=== PATIENT | female | born 1975 | race Hispanic/Latino ===

== ENCOUNTER 2019-12-14 18:21 | Emergency (ER) | payer SELFPAY ==
[2019-12-14] MEDS ORDERED: MORPHINE 2 MG/ML SYR ONE (19:42)
[2019-12-14] MEDS ORDERED: NA CHLORIDE 0.9% 1,000 ML ONE (19:43)
[2019-12-14] MEDS ORDERED: ONDANSETRON 4 MG/2 ML VIAL ONE (19:43)
[2019-12-14 19:52] LABS: Absolute Lymphocytes (CBC) 4.3 K/uL (0.7-4.9); Basophils % 0.6 % (0-1.3); Lymphocytes % 39.7 % (15.3-44.8); MPV 7.9 fL (7.6-11.3); RBC Red Blood Cell Count 4.56 M/uL (3.86-4.86)
[2019-12-14 20:09] LABS: ALT/SGPT 78 U/L (12-78); AST/SGOT 32 U/L (15-37); Albumin 3.9 g/dL (3.4-5.0); Alkaline Phosphatase 78 U/L (45-117); BUN Blood Urea Nitrogen 14 mg/dL (7-18); Bicarbonate 28 mmol/L (21-32); Bilirubin Direct < 0.1 mg/dL (0-0.2); Bilirubin Total 0.3 mg/dL (0.2-1.0); Glucose Level 89 mg/dL (74-106); Lipase 128 U/L (73-393); Potassium 3.6 mmol/L (3.5-5.1); Protein, Total 8.5 g/dL (6.4-8.2); Sodium Level 139 mmol/L (136-145)
--- NOTE | 2019-12-14 21:26 | RAD REPORT ---
EXAM DESCRIPTION: CT - Abdomen Pelvis W Contrast - 12/14/2019 8:56 pm CLINICAL HISTORY: ABD PAIN COMPARISON: No comparisons TECHNIQUE: Biphasic, helical CT imaging of the abdomen and pelvis was performed following 100 ml non -ionic IV contrast. No oral contrast given. All CT scans are performed using dose optimization technique as appropriate and may include automated exposure control or mA/KV adjustment according to patient size. FINDINGS: No suspicious findings in the lung bases. Liver shows diffuse fatty infiltration with no focal liver lesion. No portal vein abnormality. Spleen and pancreas show no suspicious findings. Cholecystectomy clips are present. No biliary tree dilatat ion. Symmetric renal function is seen with no hydronephrosis or suspicious renal mass. No pyelonephritis o r acute parenchymal process. Urinary bladder is contracted limiting assessment. No adrenal abnormalit ies. Uterus shows no suspicious findings. Tubal occlusive device in place. Left ovary is unremarkable . Right ovary contains a 3 centimeter benign-appearing cyst. No stomach or small bowel acute finding. Cecum is low-lying in the pelvis. The appendix is in the low anterior midline pelvis. The appendix measures large at 11 mm. No periappendiceal inflammatory stran ding or appendicolith. No free air or pneumatosis. Physiologic quantity of free fluid in the cul de sac. No hernia, mass or bulky lymphadenopathy. No suspicious bony findings. IMPRESSION: Pronounced fatty infiltration of the liver is present. No acute findings in the upper ab domen. The appendix measures large at 11 mm but no appendicolith present and no surrounding inflammatory str anding. The appendix is low in the anterior midline pelvis. Acute appendicitis is doubtful given the appearance and history of upper abdominal pain
[2019-12-14 21:32] LABS: Urine Blood NEGATIVE (NEG); Urine Glucose NEGATIVE (NEG); Urine Protein NEGATIVE (NEG); Urine Specific Gravity >1.030 (1.005-1.030)
[2019-12-14] MEDS ORDERED: PROMETHAZINE INJ 25 MG/ML AMP ONE (22:13)
[2019-12-14] MEDS ORDERED: LIDOCAINE VISCOUS 2% SOLN 15 ML UDC ONE (22:13)
[2019-12-14] MEDS ORDERED: FAMOTIDINE 20 MG/2 ML VIAL IV ONE (22:13)
[2019-12-14] MEDS ORDERED: PANTOPRAZOLE 40 MG INJ ONE (22:13)
[2019-12-14] MEDS ORDERED: MAGNE/ALUM HYDROXD 30 ML UCUP ONE (22:13)
--- NOTE | 2019-12-14 22:16 | EDPHYS ---
Physician Documentation [facility] Name: Mare Ramirez Age: 44 yrs Sex: Female : 1975 Arrival Date: 12/14/2019 Time: 18:23 Bed 8 Private MD: ED Physician Gonzales Allen HPI: 12/13 19:35 This 44 yrs old Female presents to ER via Ambulatory with complaints of cp Abdominal Pain. 19:35 The patient presents with abdominal pain in the epigastric area. cp 19:35 Onset: The symptoms/episode began/occurred 2 day(s) ago. cp 19:35 The symptoms radiate to Associated signs and symptoms: Pertinent positives: nausea and cp vomiting, Pertinent negatives: chest pain, constipation, diarrhea, fever. The symptoms are described as constant. Severity of pain: in the emergency department the pain is unchanged despite home interventions. 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 - Social history:: Smoking status: Patient denies any tobacco usage or history of. ROS: 19:50 Constitutional: Negative for body aches, chills, fever, poor PO intake. cp 19:50 Eyes: Negative for injury, pain, redness, and discharge. cp 19:50 Cardiovascular: Negative for chest pain, palpitations. cp 19:50 ENT: Negative for ear pain, sore throat. cp 19:50 Respiratory: Negative for cough, shortness of breath, wheezing. 19:50 Abdomen/GI: Positive for abdominal pain, nausea, Negative for diarrhea, constipation, active vomiting. 19:50 Back: Positive for radiated pain. 19:50 Skin: Negative for rash. 19:50 All other systems are negative. Exam: 19:55 Constitutional: The patient appears in no acute distress, alert, awake, cp non-diaphoretic, non-toxic, well developed, well nourished. 19:55 Head/Face: Normocephalic, atraumatic. cp 19:55 Eyes: Periorbital structures: appear normal, Conjunctiva: normal, no exudate, no injection, Sclera: no appreciated abnormality, Lids and lashes: appear normal, bilaterally. 19:55 ENT: External ear(s): are unremarkable, Nose: is normal, Mouth: Lips: moist, Oral mucosa: moist, Posterior pharynx: Airway: no evidence of obstruction, patent. 19:55 Chest/axilla: Inspection: normal, Palpation: is normal, no crepitus, no tenderness. 19:55 Cardiovascular: Rate: tachycardic, Rhythm: regular. 19:55 Respiratory: the patient does not display signs of respiratory distress, Respirations: normal, no use of accessory muscles, no retractions, labored breathing, is not present, Breath sounds: are clear throughout, no decreased breath sounds. 19:55 Abdomen/GI: Inspection: abdomen appears normal, Bowel sounds: active, all quadrants, Palpation: soft, in all quadrants, severe abdominal tenderness, in the epigastric area, rebound tenderness, is not appreciated, voluntary guarding, is elicited in the epigastric area. Vital Signs: 18:29 BP 114 / 96; Pulse 118; Resp 18; Temp 99.6; Pulse Ox 95% ; Weight 73.94 kg; Height 4 ll1 ft. 11 in. (149.86 cm); Pain 10/10; 20:00 BP 120 / 74; Pulse 78; Resp 17; Pulse Ox 100% on R/A; rv 22:09 BP 115 / 84; Pulse 93; Resp 17; Pulse Ox 98% on R/A; rv 18:29 Body Mass Index 32.92 (73.94 kg, 149.86 cm) ll1 MDM: 19:12 Patient medically screened. cp 19:30 Differential diagnosis: gastroesophageal reflux disease, non-specific abd pain, cp pancreatitis, choledocholithiasis. 22:15 Data reviewed: vital signs, nurses notes, lab test result(s), radiologic studies, CT cp scan, and as a result, I will discharge patient. 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 Response to treatment: the patient's symptoms have markedly improved after treatment. 12/13 19:24 Order name: Basic Metabolic Panel; Complete Time: 20:14 cp 12/13 19:24 Order name: CBC with Diff; Complete Time: 20:14 cp 12/13 19:24 Order name: Hepatic Function; Complete Time: 20:14 cp 12/13 20:14 Interpretation: Normal except: TP 8.5; GLOB 4.6; A/G 0.8. cp 12/13 19:24 Order name: Lipase; Complete Time: 20:14 cp 12/13 21:28 Order name: Urine Dipstick--Ancillary (enter results); Complete Time: 21:36 ar5 12/13 21:28 Order name: Urine --Ancillary (enter results); Complete Time: 21:36 ar5 12/13 19:24 Order name: CT Abd/Pelvis - IV Contrast Only; Complete Time: 21:36 cp 12/13 21:37 Interpretation: Report reviewed. cp 12/13 19:24 Order name: IV Saline Lock; Complete Time: 19:44 cp 12/13 19:24 Order name: Labs collected and sent; Complete Time: 19:44 cp 12/13 19:24 Order name: Urine Dipstick-Ancillary (obtain specimen); Complete Time: 21:27 cp 12/13 19:24 Order name: Urine Test (obtain specimen); Complete Time: 21:27 cp 12/13 21:38 Order name: PO challenge; Complete Time: 22:09 cp Administered Medications: 19:30 Drug: Zofran (Ondansetron) 4 mg Route: IVP; Site: right antecubital; rv 22:08 Follow up: Response: No adverse reaction rv 19:30 Drug: morphine 2 mg {Note: rass 0.} Route: IVP; Site: right antecubital; rv 22:08 Follow up: Response: No adverse reaction; RASS: Alert and Calm (0) rv 19:30 Drug: NS 0.9% 1000 ml Route: IV; Rate: 1 bolus; Site: right antecubital; rv 22:08 Follow up: IV Status: Completed infusion; IV Intake: 1000ml rv 22:07 Drug: GI Cocktail without - (Maalox Suspension 30 ml, Lidocaine Liquid 2 % 15 rv ml) Route: PO; 22:30 Follow up: Response: No adverse reaction; Marked relief of symptoms rv 22:07 Drug: ProTONIX 40 mg Route: IVP; Site: right antecubital; rv 22:29 Follow up: Response: No adverse reaction; Marked relief of symptoms rv 22:07 Drug: Pepcid 20 mg Route: IVP; Site: right antecubital; rv 22:29 Follow up: Response: No adverse reaction; Marked relief of symptoms rv 22:07 Drug: Phenergan 12.5 mg Route: IVP; Site: right antecubital; rv 22:29 Follow up: Response: No adverse reaction; Marked relief of symptoms rv Disposition: 12/14 00:40 Co-signature as Attending Physician, Gonzales Allen MD. pkl Disposition: 12/14/19 22:15 Discharged to Home. Impression: Epigastric pain. - Condition is Stable. - Discharge Instructions: Abdominal Pain, Adult, Gastroesophageal Reflux Disease, Adult. - Prescriptions for Protonix 40 mg Oral Tablet - take 1 tablet by ORAL route once daily; 30 tablet. promethazine 25 mg Oral Tablet - take 1 tablet by ORAL route every 6 hours As needed; 20 tablet. - Medication Reconciliation Form, Thank You Letter, Antibiotic Education, Prescription Opioid Use form. - Follow up: Demetrio Bledsoe MD; When: 1 - 2 days; Reason: Recheck today's complaints. - Problem is new. - Symptoms have improved. Signatures: Dispatcher [employer] EDMS Gonzales Allen MD MD pkl Jh Acevedo PA PA cp Tiago Negron RN RN rv Darin Lopez RN RN ll1 Corrections: (The following items were deleted from the chart) 12/13 22:28 22:15 12/14/2019 22:15 Discharged to Home. Impression: Epigastric pain. Condition is rv Stable. Forms are Medication Reconciliation Form, Thank You Letter, Antibiotic Education, Prescription Opioid Use. Follow up: Demetrio Bledsoe; When: 1 - 2 days; Reason: Recheck today's complaints. Problem is new. Symptoms have improved. cp
--- NOTE | 2019-12-14 22:16 | ER ---
Nurse's Notes [facility] Name: Mare Ramirez Age: 44 yrs Sex: Female : 1975 Arrival Date: 12/14/2019 Time: 18:23 Bed 8 Private MD: Diagnosis: Epigastric pain Presentation: 12/13 18:29 Chief complaint: Patient states: Upper abd pain with N/V/D since Friday evening. No ll1 known fever. Coronavirus screen: Client denies travel out of the [place] in the last 14 days. diarrhea, nausea, vomiting. Client presents with at least one sign or symptom that may indicate coronavirus-19. Standard/surgical mask placed on the client. Ebola Screen: Patient denies travel to an Ebola-affected area in the 21 days before illness onset. Initial Sepsis Screen: Does the patient meet any 2 criteria? HR > 90 bpm. No. Patient's initial sepsis screen is negative. Does the patient have a suspected source of infection? Yes: Acute abdominal pain. Risk Assessment: Do you want to hurt yourself or someone else? Patient reports no desire to harm self or others. Onset of symptoms was December 12, 2019. 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 - Social history:: Smoking status: Patient denies any tobacco usage or history of. Screenin:56 Abuse screen: Denies threats or abuse. Denies injuries from another. Nutritional rv screening: No deficits noted. Tuberculosis screening: No symptoms or risk factors identified. Fall Risk None identified. Assessment: 20:00 General: Appears uncomfortable, Behavior is calm, cooperative. rv 20:00 Pain: Complains of pain in abdomen Pain currently is 10 out of 10 on a pain scale. rv Neuro: Level of Consciousness is awake, alert, obeys commands, Oriented to person, place, time, situation. Cardiovascular: Patient's skin is warm and dry. Respiratory: Airway is patent Respiratory effort is even, unlabored. GI: Bowel sounds present X 4 quads. Abd is soft and non tender X 4 quads. Derm: Skin is intact. 22:08 Reassessment: PATIENT COMPLAINING OF ABDOMINAL PAIN AND NAUSEA, VITAL SIGNS CHECKED. rv AWAITING CT SCAN REPORT. REFERRED TO [facility]. NEW ORDERS RECEIVED. GIVEN MEDICATIONS ORDERED. 22:27 Reassessment:. Neuro: Level of Consciousness is awake, alert, obeys commands, Oriented rv to person, place, time, situation. GI: Abdomen is round non-distended, Patient currently denies abdominal pain, nausea. Vital Signs: 18:29 BP 114 / 96; Pulse 118; Resp 18; Temp 99.6; Pulse Ox 95% ; Weight 73.94 kg; Height 4 ll1 ft. 11 in. (149.86 cm); Pain 10/10; 20:00 BP 120 / 74; Pulse 78; Resp 17; Pulse Ox 100% on R/A; rv 22:09 BP 115 / 84; Pulse 93; Resp 17; Pulse Ox 98% on R/A; rv 18:29 Body Mass Index 32.92 (73.94 kg, 149.86 cm) ll1 ED Course: 18:23 Patient arrived in ED. ag5 18:31 Triage completed. ll1 18:31 Arm band placed on. ll1 19:11 Irma Acevedo PA is PHCP. cp 19:11 Gonzales Allen MD is Attending Physician. cp 19:28 Tiago Negron, AUDRA is Primary Nurse. rv 19:44 Initial lab(s) drawn, by nh, sent to lab. Inserted saline lock: 20 gauge in right rv antecubital area, using aseptic technique. Blood collected. 20:00 Patient has correct armband on for positive identification. Bed in low position. Call rv light in reach. Side rails up X 1. 20:00 Pulse ox on. NIBP on. rv 20:38 Radiology exam delayed due to test not completed at this time. vm2 20:56 CT Abd/Pelvis - IV Contrast Only In Process Unspecified. EDMS 22:14 Demetrio Bledsoe MD is Referral Physician. cp 22:27 No provider procedures requiring assistance completed. IV discontinued, intact, rv bleeding controlled, No redness/swelling at site. Pressure dressing applied. Administered Medications: 19:30 Drug: Zofran (Ondansetron) 4 mg Route: IVP; Site: right antecubital; rv 22:08 Follow up: Response: No adverse reaction rv 19:30 Drug: morphine 2 mg {Note: rass 0.} Route: IVP; Site: right antecubital; rv 22: Follow up: Response: No adverse reaction; RASS: Alert and Calm (0) rv 19:30 Drug: NS 0.9% 1000 ml Route: IV; Rate: 1 bolus; Site: right antecubital; rv 22:08 Follow up: IV Status: Completed infusion; IV Intake: 1000ml rv 22: Drug: GI Cocktail without - (Maalox Suspension 30 ml, Lidocaine Liquid 2 % 15 rv ml) Route: PO; 22:30 Follow up: Response: No adverse reaction; Marked relief of symptoms rv 22: Drug: ProTONIX 40 mg Route: IVP; Site: right antecubital; rv 22:29 Follow up: Response: No adverse reaction; Marked relief of symptoms rv 22: Drug: Pepcid 20 mg Route: IVP; Site: right antecubital; rv 22:29 Follow up: Response: No adverse reaction; Marked relief of symptoms rv 22:07 Drug: Phenergan 12.5 mg Route: IVP; Site: right antecubital; rv 22:29 Follow up: Response: No adverse reaction; Marked relief of symptoms rv Intake: 22:08 IV: 1000ml; Total: 1000ml. rv Outcome: 22:15 Discharge ordered by . cp 22:28 Discharged to home ambulatory, with family. rv 22:28 Condition: improved 22:28 Discharge instructions given to patient, Instructed on discharge instructions, follow up and referral plans. medication usage, Demonstrated understanding of instructions, follow-up care, medications, Prescriptions given X 2. 22:28 Patient left the ED. rv Signatures: Dispatcher [employer] EDMS Irma Acevedo PA PA cp McGuire, Victoria 2 Tiago Negron RN RN rv Lance Meza [facility] Darin Lopez RN RN ll1
[2019-12-14 22:38] VITALS: TEMP 99.6
[2019-12-14 22:41] VITALS: BP 115/84; O2SAT 98
== END 2019-12-14 22:28 | disposition home or self-care (01) ==
LOC: ER 18:21
DX: R10.13 Epigastric pain (principal)
CPT/HCPCS: 36415; 74177; 80048; 80076; 81003; 81025; 83690; 85025; 96361; 96374; 96375; 99284; C9113; J2270; J2405; J2550; J7030; Q9967

== ENCOUNTER 2020-02-08 03:04 | Emergency (ER) | payer SELFPAY ==
--- OUTSIDE RECORDS SUMMARY | 2020-02-08 03:06 | XMS REPORT | Summary of Care ---
:1975 Author Organization [facility] Address [address] [place] [id number] Care Team Providers Name Role Phone Sherif Wolf Primary Care Provider Encounter Details Date Type Department Care Team Description 01/04/2020 Letter (Out) [facility] [address] [id number] [place], [place] [id number] Allergies No Known Allergiesdocumented as of this encounter (statuses as of 01/04/2020) Medications Medication Sig Dispensed Refills Start Date End Date Status hydrocodone-acetaminop Take 1-2 Tabs by 30 Tab 0 02/08/2011 Active hen (NORCO 5) 5-325 mg mouth every 6 tablet (six) hours as needed for Pain. traMADOL 50 mg tablet Take 1 tablet by 20 tablet 0 04/07/2017 Active mouth every 6 (six) hours as needed (pain). proMETHazine 25 mg Take 1 tablet by 20 tablet 0 04/07/2017 Active tablet mouth every 6 (six) hours as needed for Nausea and Vomiting (N/V). documented as of this encounter (statuses as of 01/04/2020) Active Problems Not on filedocumented as of this encounter (statuses as of 01/04/2020) Social History Tobacco Use Types Packs/Day Years Used Date Never Smoker Alcohol Use Drinks/Week oz/Week Comments Never Alcohol Habits Answer Date Recorded How often do you have a drink containing alcohol? Never 12/17/2019 How many drinks containing alcohol do you have on a typical Not asked day when you are drinking? How often do you have six or more drinks on one occasion? No t asked Sex Assigned at Date Recorded Not on file COVID-19 Exposure Response Date Recorded In the last month, have you been in contact with No / Unsure 12/17/2019 10:07 AM CDT someone who was confirmed or suspected to have Coronavirus / COVID-19? documented as of this encounter Last Filed Vital Signs Not on filedocumented in this encounter Plan of Treatment Date Type Specialty Care Team Description 03/31/2020 Desk Maker Visit Phlebotomy Jerson Chacon MD [address] [place] [address] [address] [place] [address] [phone] Pob, Adc Lab Main Health Maintenance Due Date Last Done Comments DTaP,Tdap,and Td Vaccines (1 - 1996 Tdap) PAP SMEAR 1998 Breast Cancer Screening 2017 (MAMMOGRAM) INFLUENZA VACCINE (#1) 2019 Depression Screening 12/16/2020 12/17/2019 PNEUMOCOCCAL 0-64 YEARS COMBINED Aged Out No longer eligible based on SERIES patient's age to complete this topic documented as of this encounter Results Not on filedocumented in this encounter
--- OUTSIDE RECORDS SUMMARY | 2020-02-08 03:06 | XMS REPORT | Summary of Care ---
:1975 Author Organization [facility] Address [address] [place] [address] Care Team Providers Name Role Phone Pcp, Patient Does Not Have A Primary Care Provider +1-000-00 0-0000 Reason for Visit Reason Comments New Patient Establish Care Patient referred by Dr. Herrera tt Thyroid Problem Encounter Details Date Type Department Care Team Description 12/17/2019 Office Visit [facility] Jerson Chacon, Elevated TSH (Primary Endocrinology- MD Dx) [address] 146 [facility] [address], [address] [place] [address] [place], [place] [phone] [address] [phone] Allergies No Known Allergiesdocumented as of this encounter (statuses as of 12/17/2019) Medications Medication Sig Dispensed Refills Start Date End Date Status hydrocodone-acetamino Take 1-2 Tabs 30 Tab 0 02/08/2011 Active phen (NORCO 5) 5-325 by mouth every mg tablet 6 (six) hours as needed for Pain. traMADOL 50 mg tablet Take 1 tablet 20 tablet 0 04/07/2017 Active by mouth every 6 (six) hours as needed (pain). proMETHazine 25 mg Take 1 tablet 20 tablet 0 04/07/2017 Active tablet by mouth every 6 (six) hours as needed for Nausea and Vomiting (N/V). ibuprofen (MOTRIN) Take 1 Tab by 28 Tab 0 02/08/2011 Discontinued 800 mg tablet mouth every 6 0 (six) hours as needed for Pain. cyclobenzaprine Take 1 Tab by 28 Tab 0 02/08/2011 Discontinued (FLEXERIL) 10 mg mouth 3 0 tablet (three) times daily as needed for Muscle Spasms. documented as of this encounter (statuses as of 12/17/2019) Active Problems Not on filedocumented as of this encounter (statuses as of 12/17/2019) Social History Tobacco Use Types Packs/Day Years [...] of this encounter Last Filed Vital Signs Vital Sign Reading Time Taken Comments Blood Pressure 133/89 12/17/2019 10:09 AM CDT Pulse 99 12/17/2019 10:09 AM CDT Temperature - - Respiratory Rate - - Oxygen Saturation - - Inhaled Oxygen Concentration - - Weight 77.6 kg (171 lb) 12/17/2019 10:09 AM CDT Height 149.9 cm (4' 11") 12/17/2019 10:09 AM CDT Body Mass Index 34.54 12/17/2019 10:09 AM CDT documented in this encounter Patient Instructions Patient InstructionsJessica Ram MD - 12/17/2019 10:00 AM CDTWe are going to check your antibodies for your thyroid gland. If they are positive, we will likely start you on medications. We will call you about your results. documented in this encounter Progress Notes Jessica Ram MD - 12/17/2019 10:00 AM CDT Endocrine Clinic Note Date of Service: 12/17/2019 Chief Complaint: New Patient, Establish Care (Patient referred by Dr. Benedict), and Thyroid Problem HPI: Mare Ramirez is a 44 year old female with PMH of acute cholecystectomy (2003) who presents to clinic today as a new patient to evaluate for hypothyroidism (TSH 10.5%). Patient reports that beginning on 1 week ago, she developed worsening abdominal pain, nausea, vomiting, diarrhea, indigestion that radiated from stomach and wrapped around to the back. She was seen by a private GI doctor (Dr. Benedict) who performed EGD, RUQ US, and CT A/P with and without contrast. In addition, TSH level was drawn to evaluate the thyroid. TSH 10.5%, patient referred to endocrine clinic. With regard to the thyroid problem, patient describes symptoms of feels like it's hard to lose weight, feels tired often (most of the day, worsening over the last year). She reports poor-to-no appetite, specifically worsening over the last few days. However, prior to this acute episode of abdominal pain, she reports that her appetite is poor in general. She also reports dry skin, hair falling out, worsening insomnia for 1 year. Finally, she reports gradual weight gain of 50 lbs over the past four years. She had a tubal ligation and is not taking OCPs. Denies history of steroid medications. She has pertinent family history of mother with thyroid issues, diabetes mellitus, and heart disease( now from heart disease). ROS: Review of Systems Constitutional: Positive for appetite change, fatigue, unexpected weight change and weight gain. Negative for chills. HENT: Positive for sore throat. Respiratory: Negative for chest tightness and shortness of breath. Gastrointestinal: Positive for abdominal pain, nausea and vomiting. Skin: Dry skin Neurological: Negative for tremors. Psychiatric/Behavioral: Positive for sleep disturbance. Endocrine: Positive for hair loss and weight gain. Medications: Current Outpatient Medications Medication Sig Dispense Refill proMETHazine 25 mg tablet Take 1 tablet by mouth every 6 (six) hours as needed for Nausea and Vomiting (N/V). 20 tablet 0 traMADOL 50 mg tablet Take 1 tablet by mouth every 6 (six) hours as needed (pain). 20 tablet 0 cyclobenzaprine (FLEXERIL) 10 mg tablet Take 1 Tab by mouth 3 (three) times daily as needed for Muscle Spasms. 28 Tab 0 hydrocodone-acetaminophen (NORCO 5) 5-325 mg tablet Take 1-2 Tabs by mouth every 6 (six) hours as needed for Pain. 30 Tab 0 ibuprofen (MOTRIN) 800 mg tablet Take 1 Tab by mouth every 6 (six) hours as needed for Pain. 28 Tab 0 No current facility-administered medications for this visit. Past Medical Hx: No past medical history on file. Physical Exam: BP 133/89 (BP Location: Left arm, Patient Position: Sitting, BP CUFF SIZE: Adult Medium) | Pulse 99 | Ht 4' 11" (1.499 m) | Wt 171 lb (77.6 kg) | BMI 34.54 kg/m \\There is no height or weight on file to calculate BMI. Wt Readings from Last 3 Encounters: 04/07/17 145 lb (65.8 kg) Physical Exam Constitutional: She appears well-developed and well-nourished. She appears distressed. Neck: Normal range of motion. Thyromegaly present. Cardiovascular: Normal rate and regular rhythm. Pulmonary/Chest: Effort normal and breath sounds normal. No respiratory distress. Abdominal: Soft. Bowel sounds are normal. There is abdominal tenderness. Skin: Skin is dry. 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 Will evaluate Free T4 and TPO ab prior to starting levothyroxine. Will follow-up with lab work to determineneed for clinic follow-up. Orders Placed This Encounter Procedures T4 FREE THYROID PEROXIDASE (TPO) AB Acute epigastric abdominal pain Unlikely to be solely related to the hypothyroidism. Management per Dr. Benedict. Patient was seen and discussed with Dr. Oswaldo Ram M.D. Department of Internal Medicine PGY-1, [place] Team Doctor's Number: [id number] Pager Number: [phone] 12/17/19 documented in this encounter Plan of Treatment Name Type Priority Associated Diagnoses Order S chedule T4 FREE LAB Routine Elevated TSH Expected: 12/16, Expires: 2020 THYROID PEROXIDASE (TPO) LAB Routine Elevated TSH Exp ected: 12/17/2019, AB Expires: 2020 Health Maintenance Due Date Last Done Comments DTaP,Tdap,and Td Vaccines ( - 1996 Tdap) PAP SMEAR 1998 Breast Cancer Screening 2017 (MAMMOGRAM) INFLUENZA VACCINE (#1) 2019 Depression Screening 12/16/2020 12/17/2019 PNEUMOCOCCAL 0-64 YEARS COMBINED Aged Out No longer eligible based on SERIES patient's age to complete this topic documented as of this encounter Results Not on filedocumented in this encounter Visit Diagnoses Diagnosis Elevated TSH - Primary Other abnormal blood chemistry documented in this encounter
--- OUTSIDE RECORDS SUMMARY | 2020-02-08 03:06 | XMS REPORT | Summary of Care ---
:1975 Author Organization [facility] Address [address] [place] [address] Care Team Providers Name Role Phone Pcp, Patient Does Not Have A Primary Care Provider +1-000-00 0-0000 Reason for Visit Reason Comments LAB Encounter Details Date Type Department Care Team Description 12/17/2019 Associate Principal Visit [facility] Health Professional Jerson Daniels MD [address] [place] [address] [address] [place] [address] [phone] Elevated TSH Office Building 2, [facility] Lab Phlebotomy Lab Professional Office Building [address] [place] [address] , [address] [place] [address] Allergies No Known Allergiesdocumented as of this [...] Signs Not on filedocumented in this encounter Nursing Notes Leida Alexander - 12/17/2019 11:15 AM CDT Venipuncture collection performed by clean technique on the right anticubitus. Total of 1 attempts were made. Slight pressure and a bandage/dressing were applied to the site(s). The patient experiencedno complications. The following specimens were processed according to instructions and sent to [facility] laboratories per lab order on 12/17/19: LT BLUE SST 2 RED LAV PPT DK GREEN (LiHep) DK GREEN (SodH) HUNT DK BLUE (K2) DK BLUE (S) ACD Blood Culture NIPT/NTD documented in this encounter Plan of Treatment Health Maintenance Due Date Last Done Comments [...] this encounter Visit Diagnoses Diagnosis Elevated TSH Other abnormal blood chemistry documented in this encounter
--- OUTSIDE RECORDS SUMMARY | 2020-02-08 03:06 | XMS REPORT | Summary of Care ---
:1975 Author Organization [facility] - Health Address [address] [id number] Care Team Providers Name Role Phone Sherif Wolf Primary Care Provider Encounter Details Date Type Department Care Team Description 01/01/2020 Orders Only [facility] Doctor Unassigned, No [address] [facility] Name [place] [phone] [place] [address] Allergies No Known Allergiesdocumented as of this encounter (statuses as of 01/01/2020) Medications Medication Sig Dispensed Refills Start Date [...] as of this encounter (statuses as of 01/01/2020) Active Problems Not on filedocumented as of this encounter (statuses as of 01/01/2020) Social History Tobacco Use Types Packs/Day Years [...] Date Type Specialty Care Team Description 03/31/2020 Clinical Trial Manager Visit Phlebotomy Jerson Chacon MD [address] [place] [address] [address] [place] [id number] Pob, Adc Lab Main Health Maintenance Due Date Last Done Comments DTaP,Tdap,and Td Vaccines (1 - 1996 Tdap) PAP SMEAR 1998 Breast Cancer Screening 2017 (MAMMOGRAM) INFLUENZA VACCINE (#1) 2019 Depression Screening 12/16/2020 12/17/2019 PNEUMOCOCCAL 0-64 YEARS COMBINED Aged Out No longer eligible based on SERIES patient's age to complete this topic documented as of this encounter Procedures Procedure Name Priority Date/Time Associated Diagnosis Comme nts REFERRAL- Routine 01/01/2020 12:01 AM CDT REQUEST/RESPONSE documented in this encounter Results Not on filedocumented in this encounter
--- OUTSIDE RECORDS SUMMARY | 2020-02-08 03:06 | XMS REPORT | Continuity of Care Document ---
:1975 Author Organization [facility] t Address [address] [place] [address] Care Team Providers Name Role Phone Marichuy Attending Clinician Doctor Unassigned, Name Attending Clinician Unavailable Oswaldo SCOTT, Chung Attending Clinician 2, Lab Attending Clinician Unavailable Problems This patient has no known problems. Allergies, Adverse Reactions, Alerts This patient has no known allergies or adverse reactions. Medications This patient has no known medications. Procedures This patient has no known procedures. Encounters Start End Encounter Admission Attending Care Care Encounter Source Date/Time Date/Time Type Type Clinicians Facility Department ID 2020-01-04 2020-01-04 Letter ANGELINA Benedict [id number] 00:00:00 00:00:00 (Out) Carlos NEAL [id number] [place] [id number] 2020-01-01 2020-01-01 Orders Doctor ALFARO [id number] 00:00:00 00:00:00 Only UnassignedÁNGEL [id number] [place] [facility] [id number] 2019-12-23 2019-12-23 Telephone FELICE Chacon [id number] 00:00:00 00:00:00 Jerson Hester [id number] [place] [id number] [facility] [id number] [address] 2019-12-17 2019-12-17 Web Ui Developer 2, Adc Lab [facility] [id number] 11:15:13 11:30:13 Visit Kacie [id number] [place] [id number] Profsophie [id number] [facility] [address] [facility] 2019-12-17 2019-12-17 Office Oswaldo [facility] [id number] 09:53:05 10:23:05 Visit Jerson Hester [id number] Far[place] [id number] Professio [id number] [facility] [address] [facility] Results This patient has no known results.
--- OUTSIDE RECORDS SUMMARY | 2020-02-08 03:06 | XMS REPORT | Summary of Care ---
:1975 Author Organization [facility] Address [address] [place] [address] Care Team Providers Name Role Phone Pcp, Patient Does Not Have A Primary Care Provider +1-000-00 0-0000 Reason for Visit Reason Comments Results Encounter Details Date Type Department Care Team Description 12/23/2019 Telephone [facility] Endocrinology- Jerson Simental MD Results [place] [address] [facility], [facility] [address] [place] [address] [place] [address] [phone] Allergies No Known Allergiesdocumented as of this encounter (statuses as of 12/27/2019) Medications Medication Sig Dispensed Refills Start Date [...] as of this encounter (statuses as of 12/27/2019) Active Problems Not on filedocumented as of this encounter (statuses as of 12/27/2019) Social History Tobacco Use Types Packs/Day Years [...] Signs Not on filedocumented in this encounter Miscellaneous Notes Telephone Encounter - Anitha Ordonez - 12/27/2019 11:30 AM CDTSpoke with the patient and she is scheduled for a lab appointment on Friday-03/31/2020 at 10:00am. Telephone Encounter - Kemar Macias MBBS - 12/27/2019 9:15 AM CDTCalled and talked to the patient. PO AB ab and FT4 normal. TSH was reported to be high. Plan discussed with Dr. Saunders.Will repeat testing in 3 months. Kemar Macias MD PGY-4 Endocrinology Fellow Telephone Encounter - Kmear Macias MBBS - 12/24/2019 5:49 PM CDTTried to call patient to discuss results , no one picked up. Kemar Macias MD PGY-4 Endocrinology Fellow Telephone Encounter - Maria Guadalupe Raya - 12/23/2019 9:50 AM CDTPatient is calling and is requesting an update on lab results, please call patient back in regards to this encounter. documented in this encounter Plan of Treatment Date Type Specialty Care Team Description 03/31/2020 Donkey Ride Operator Visit Phlebotomy Jerson Saunders MD [address] [place] [address] [place] [address] [phone] Pob, Adc Lab Main Name Type Priority Associated Diagnoses Order S chedule THYROID STIMULATING HORMONE LAB Routine Elevated TSH Expected: 03/21/2020, Expires: 2020 FREE T4 LAB Routine Elevated TSH Expected: 03/21, Expires: 2020 Health Maintenance Due Date Last [...]
--- OUTSIDE RECORDS SUMMARY | 2020-02-08 03:06 | XMS REPORT | Summary of Care ---
:1975 Author Organization [facility] Address [address] [place] [address] Care Team Providers Name Role Phone Pcp, Patient Does Not Have A Primary Care Provider +1-000-00 0-0000 Reason for Visit Reason Comments New Patient Establish Care Patient referred by Dr. Herrera tt Thyroid Problem Encounter Details Date Type Department Care Team Description 12/17/2019 Office Visit [facility] Jerson Chacon, Elevated TSH (Primary Endocrinology- MD Dx) [address] 146 [facility] [address], [address] [place] [address] [place], [place] [phone] [address] [phone] Allergies No Known Allergiesdocumented as of this [...] Ram M.D. Department of Internal Medicine PGY-1, [place] Team Doctor's Number: [id number] Pager Number: [phone] 12/17/19 documented in this encounter Plan of [...]
[2020-02-08] MEDS ORDERED: HYDROMORPHONE HCL 1 MG/ML INJ ONE ×2 (03:42→05:31)
[2020-02-08] MEDS ORDERED: ONDANSETRON 4 MG/2 ML VIAL ONE ×2 (03:42→05:48)
[2020-02-08] MEDS ORDERED: NA CHLORIDE 0.9% 1,000 ML ONE (03:42)
[2020-02-08 04:10] LABS: Basophils % 0.8 % (0-1.3); Lymphocytes % 49.6 % (15.3-44.8); MPV 7.7 fL (7.6-11.3); RBC Red Blood Cell Count 3.94 M/uL (3.86-4.86)
[2020-02-08 04:20] LABS: BUN Blood Urea Nitrogen 14 mg/dL (7-18); Bicarbonate 26 mmol/L (21-32); Glucose Level 118 mg/dL (74-106); Potassium 3.6 mmol/L (3.5-5.1); Sodium Level 142 mmol/L (136-145)
[2020-02-08 04:21] LABS: ALT/SGPT 92 U/L (12-78); AST/SGOT 38 U/L (15-37); Albumin 3.1 g/dL (3.4-5.0); Alkaline Phosphatase 78 U/L (45-117); Bilirubin Direct < 0.1 mg/dL (0-0.2); Bilirubin Total 0.2 mg/dL (0.2-1.0); Lipase 167 U/L (73-393); Protein, Total 6.8 g/dL (6.4-8.2)
[2020-02-08 04:37] LABS: Blood Morphology Comment NOT SEEN (NOT SEEN); Platelet Estimate ADEQ
[2020-02-08 05:21] LABS: Urine Blood NEGATIVE (NEG); Urine Glucose NEGATIVE (NEG); Urine Protein NEGATIVE (NEG); Urine Specific Gravity >1.030 (1.005-1.030); Urine pH 5.5 (5.0-7.0)
--- NOTE | 2020-02-08 06:03 | ER ---
Nurse's Notes [facility] Name: Mare Ramirez Age: 44 yrs Sex: Female : 1975 Arrival Date: 02/08/2020 Time: 03:06 Bed 2 Private MD: Diagnosis: Generalized abdominal pain Presentation: 02/07 03:08 Acuity: FADIA 3 sg 03:08 Chief complaint: Patient states: I have really bad lower abdominal cramping, and sharp sg abdominal pain. Began last night and worsening about an hour TAB CUTTER. Coronavirus screen: Client denies travel out of the [place] in the last 14 days. At this time, the client does not indicate any symptoms associated with coronavirus-19. Ebola Screen: Patient negative for fever greater than or equal to 101.5 degrees Fahrenheit, and additional compatible Ebola Virus Disease symptoms Patient denies exposure to infectious person. Patient denies travel to an Ebola-affected area in the 21 days before illness onset. No symptoms or risks identified at this time. Initial Sepsis Screen: Does the patient meet any 2 criteria? RR > 20 per min. Does the patient have a suspected source of infection? Yes: Acute abdominal pain. Risk Assessment: Do you want to hurt yourself or someone else? Patient reports no desire to harm self or others. Note pt is tearful and crying at this time. Onset of symptoms was February 08, 2020. Care prior to arrival: None. Transition of care: patient was not received from another setting of care. 03:08 Method Of Arrival: Wheelchair sg Triage Assessment: 03:08 General: Appears in no apparent distress. well groomed, well developed, well nourished, sg Behavior is cooperative, appropriate for age. General: Behavior is crying. Pain: Complains of pain in abdomen Pain does not radiate. Quality of pain is described as crampy, sharp. Neuro: Level of Consciousness is awake, alert, obeys commands, Oriented to person, place, time, Speech is normal. GI: Abdomen is round non-distended, Reports lower abdominal pain, upper abdominal pain. Derm: Skin is pink, warm \T\ dry. BILLING ASSISTANT: 06:13 LMP 01/16/2020 rr5 Historical: - Allergies: 03:08 No Known Allergies; sg - PMHx: 03:17 None; sg - PSHx: 03:08 Cholecystectomy; sg - Immunization history:: Adult Immunizations up to date. - Social history:: Smoking status: Patient denies any tobacco usage or history of. Patient/guardian denies using alcohol, street drugs, The patient lives with family. - Family history:: not pertinent. Screenin:30 Abuse screen: Denies threats or abuse. Denies injuries from another. Nutritional rr5 screening: No deficits noted. Tuberculosis screening: No symptoms or risk factors identified. Fall Risk IV access (20 points). Total Painter Fall Scale indicates No Risk (0-24 pts). Assessment: 03:05 General: Appears in no apparent distress. uncomfortable, Behavior is cooperative, rr5 crying. 03:05 Pain: Complains of pain in right lower quadrant and left lower quadrant Pain currently rr5 is 10 out of 10 on a pain scale. Quality of pain is described as crampy, sharp, Pain began gradually, Is intermittent. Neuro: Level of Consciousness is awake, alert, obeys commands, Oriented to person, place, time. Cardiovascular: Capillary refill < 3 seconds Patient's skin is warm and dry. Respiratory: Airway is patent Respiratory effort is even, unlabored, Respiratory pattern is regular, symmetrical. GI: Abdomen is round non-distended, Abd is soft and non tender Reports lower abdominal pain. : No signs and/or symptoms were reported regarding the genitourinary system. EENT: No signs and/or symptoms were reported regarding the EENT system. Derm: Skin is intact, is healthy with good turgor, Skin temperature is warm. Musculoskeletal: 03:44 Reassessment: Patient appears in no apparent distress at this time. Patient is alert, rr5 oriented x 3, equal unlabored respirations, skin warm/dry/pink. Patient states symptoms have improved. 05:05 Reassessment: the pain came back pain score 10/10 ED provider aware with order made and rr5 carried out. 05:30 Reassessment: came back from CT scan, patient is nauseous and vomiting, ED provider rr5 aware with order made and carried out. 05:30 Pain: Pain currently is 4 out of 10 on a pain scale. rr5 06:09 Reassessment: Patient appears in no apparent distress at this time. still feels rr5 nauseous and vomiting, ED provider aware with order made and carried out Patient states symptoms have not improved. 06:12 Reassessment: patient is for discharge awaiting for the symptoms to improve. rr5 06:50 Reassessment: Patient appears in no apparent distress at this time. reassess by ED rr5 provider with additional prescription made. 07:10 Reassessment: Patient appears in no apparent distress at this time. Patient is alert, rr5 oriented x 3, equal unlabored respirations, skin warm/dry/pink. discharge instruction given and explained without complaints made. Vital Signs: 03:29 BP 139 / 75 LA (man/lg); Pulse 112 LA; Resp 22 S; Temp 98.3(O); Pulse Ox 99% on R/A; jb5 03:44 BP 125 / 85; Pulse 101; Resp 16; Pulse Ox 97% ; rr5 04:30 BP 121 / 70; Pulse 85; Resp 19; Pulse Ox 99% ; Pain 4/10; rr5 05:00 BP 133 / 62; Pulse 89; Resp 17; Pulse Ox 100% ; Pain 10/10; rr5 06:00 BP 122 / 74; Pulse 80; Resp 22; Pulse Ox 98% ; Pain 4/10; rr5 07:00 BP 125 / 62; Pulse 75; Resp 19; Pulse Ox 99% ; rr5 ED Course: 03:06 Patient arrived in ED. cl3 03:08 Triage completed. sg 03:08 Arm band placed on. sg 03:14 Seth Felix MD is Attending Physician. ma2 03:18 Jackie Whitman is Primary Nurse. wh 03:28 Inserted saline lock: 20 gauge in right antecubital area, using aseptic technique. jb5 Blood collected. 03:33 Basic Metabolic Panel Sent. jb5 03:33 CBC with Diff Sent. jb5 03:33 Hepatic Function Sent. jb5 03:33 Lipase Sent. jb5 03:45 Patient has correct armband on for positive identification. Placed in gown. Bed in low rr5 position. Call light in reach. Side rails up X2. monitoring tech on. Pulse ox on. NIBP on. 05:39 CT Abd/Pelvis - IV Contrast Only In Process Unspecified. EDMS 06:13 No provider procedures requiring assistance completed. rr5 06:30 Primary Nurse role handed off by Jackie Whitman sg 07:16 IV discontinued, intact, bleeding controlled, No redness/swelling at site. Pressure rr5 dressing applied. Administered Medications: 03:36 Drug: NS 0.9% 1000 ml Route: IV; Rate: 1 bolus; Site: right antecubital; rr5 04:30 Follow up: Response: No adverse reaction; IV Status: Completed infusion; IV Intake: rr5 1000ml 03:36 Drug: Zofran (Ondansetron) 4 mg Route: IVP; Site: right antecubital; rr5 04:01 Follow up: Response: No adverse reaction rr5 03:36 Drug: Dilaudid 1 mg {Note: rass 0.} Route: IVP; Site: right antecubital; rr5 04:01 Follow up: Response: No adverse reaction; Pain is decreased; RASS: Alert and Calm (0) rr5 05:00 Drug: Dilaudid 1 mg {Note: rass 0.} Route: IVP; Site: right antecubital; rr5 06:00 Follow up: Response: No adverse reaction; Pain is decreased; RASS: Alert and Calm (0) rr5 05:37 Drug: Zofran (Ondansetron) 4 mg Route: IVP; Site: right antecubital; rr5 06:00 Follow up: Response: No adverse reaction; No change in condition; Nausea unchanged; rr5 Vomiting unchanged 06:11 Drug: Phenergan 12.5 mg Route: IVP; Site: right antecubital; rr5 07:05 Follow up: Response: No adverse reaction rr5 Intake: 04:30 IV: 1000ml; Total: 1000ml. rr5 Outcome: 06:02 Discharge ordered by . inge 07:16 Discharged to home ambulatory. rr5 07:16 Condition: stable 07:16 Discharge instructions given to patient, Instructed on discharge instructions, follow up and referral plans. medication usage, Demonstrated understanding of instructions, follow-up care, medications, Prescriptions given X 4. 07:17 Patient left the ED. rr5 Signatures: Dispatcher [employer] EDMS Hollis Scanlon RN RN Cathy Peck jb5 Jackie Whitman Mohammad, MD MD ma2 [place], MyKena mw2 Elieser Waldrop RN RN rr5 Renato Lopez cl3 Corrections: (The following items were deleted from the chart) 06:10 06:00 BP 122 / 74; Pulse 80bpm; Resp 22bpm; Pulse Ox 98%; rr5 rr5 06:30 06:15 Patient left the ED. mw2
--- NOTE | 2020-02-08 06:03 | EDPHYS ---
Physician Documentation [facility] Name: Mare Ramirez Age: 44 yrs Sex: Female : 1975 Arrival Date: 02/08/2020 Time: 03:06 Bed 2 Private MD: ED Physician Seth Felix HPI: 02/07 03:23 This 44 yrs old Female presents to ER via Wheelchair with complaints of ma2 Abdominal Pain, Abdominal Cramping. 03:24 Associated signs and symptoms: Pertinent positives: abdominal pain, vomiting, Pertinent ma2 negatives: dysuria, frequency, ruptured membranes, shortness of breath. The patient has not experienced similar symptoms in the past. RLQ abd pain x 1 day moderate . 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 - Social history:: Smoking status: Patient denies any tobacco usage or history of. Patient/guardian denies using alcohol, street drugs, The patient lives with family. - Family history:: not pertinent. ROS: 03:24 Constitutional: Negative for fever, chills, and weight loss. ma2 03:24 All other systems are negative. Exam: 03:24 Constitutional: This is a well developed, well nourished patient who is awake, alert, ma2 and in no acute distress. Head/Face: Normocephalic, atraumatic. Eyes: Pupils equal round and reactive to light, extra-ocular motions intact. Lids and lashes normal. Conjunctiva and sclera are non-icteric and not injected. Cornea within normal limits. Periorbital areas with no swelling, redness, or edema. ENT: Nares patent. No nasal discharge, no septal abnormalities noted. Tympanic membranes are normal and external auditory canals are clear. Oropharynx with no redness, swelling, or masses, exudates, or evidence of obstruction, uvula midline. Mucous membranes moist. Neck: Trachea midline, no thyromegaly or masses palpated, and no cervical lymphadenopathy. Supple, full range of motion without nuchal rigidity, or vertebral point tenderness. No Meningismus. Chest/axilla: Normal chest wall appearance and motion. Nontender with no deformity. No lesions are appreciated. Cardiovascular: Regular rate and rhythm with a normal S1 and S2. No gallops, murmurs, or rubs. Normal PMI, no JVD. No pulse deficits. Respiratory: Lungs have equal breath sounds bilaterally, clear to auscultation and percussion. No rales, rhonchi or wheezes noted. No increased work of breathing, no retractions or nasal flaring. Abdomen/GI: Soft, non-tender, with normal bowel sounds. No distension or tympany. No guarding or rebound. No evidence of tenderness throughout. Skin: Warm, dry with normal turgor. Normal color with no rashes, no lesions, and no evidence of cellulitis. MS/ Extremity: Pulses equal, no cyanosis. Neurovascular intact. Full, normal range of motion. Neuro: Awake and alert, GCS 15, oriented to person, place, time, and situation. Cranial nerves II-XII grossly intact. Motor strength 5/5 in all extremities. Sensory grossly intact. Cerebellar exam normal. Normal gait. Psych: Awake, alert, with orientation to person, place and time. Behavior, mood, and affect are within normal limits. Vital Signs: 03:29 BP 139 / 75 LA (man/lg); Pulse 112 LA; Resp 22 S; Temp 98.3(O); Pulse Ox 99% on R/A; jb5 03:44 BP 125 / 85; Pulse 101; Resp 16; Pulse Ox 97% ; rr5 04:30 BP 121 / 70; Pulse 85; Resp 19; Pulse Ox 99% ; Pain 4/10; rr5 05:00 BP 133 / 62; Pulse 89; Resp 17; Pulse Ox 100% ; Pain 10/10; rr5 06:00 BP 122 / 74; Pulse 80; Resp 22; Pulse Ox 98% ; Pain 4/10; rr5 07:00 BP 125 / 62; Pulse 75; Resp 19; Pulse Ox 99% ; rr5 MDM: 03:14 Patient medically screened. [facility] 03:24 Differential diagnosis: appendicitis, diverticulitis vs renal stone vs ovarian cyst. md2 06:02 Data reviewed: vital signs, nurses notes. Counseling: I had a detailed discussion with ma the patient and/or guardian regarding: the historical points, exam findings, and any diagnostic results supporting the discharge/admit diagnosis, the presence of at least one elevated blood pressure reading (>120/80) during this emergency department visit, the need for outpatient follow up. Response to treatment: the patient's symptoms have markedly improved after treatment. 02/07 03:23 Order name: Basic Metabolic Panel; Complete Time: 04:36 ma2 02/07 03:23 Order name: CBC with Diff; Complete Time: 05:36 ma2 02/07 03:23 Order name: Hepatic Function; Complete Time: 04:36 ma2 02/07 03:23 Order name: Lipase; Complete Time: 04:36 ma2 02/07 04:13 Order name: Manual Differential; Complete Time: 05:36 EDMS 02/07 05:09 Order name: Urine Dipstick--Ancillary (enter results); Complete Time: 05:36 mw2 02/07 03:23 Order name: CT Abd/Pelvis - IV Contrast Only md2 02/07 05:09 Order name: Urine --Ancillary (enter results); Complete Time: 05:36 2 02/07 03:23 Order name: IV Saline Lock; Complete Time: 03:33 ma2 02/07 03:23 Order name: Labs collected and sent; Complete Time: 03:33 ma2 02/07 03:23 Order name: Urine Dipstick-Ancillary (obtain specimen); Complete Time: 05:03 md2 02/07 03:23 Order name: NPO; Complete Time: 03:27 ma2 02/07 03:54 Order name: Labs - recollect needed: all the specimens is hemolyzed Laci had said; sg Complete Time: 04:01 Administered Medications: 03:36 Drug: NS 0.9% 1000 ml Route: IV; Rate: 1 bolus; Site: right antecubital; rr5 04:30 Follow up: Response: No adverse reaction; IV Status: Completed infusion; IV Intake: rr5 1000ml 03:36 Drug: Zofran (Ondansetron) 4 mg Route: IVP; Site: right antecubital; rr5 04:01 Follow up: Response: No adverse reaction rr5 03:36 Drug: Dilaudid 1 mg {Note: rass 0.} Route: IVP; Site: right antecubital; rr5 04:01 Follow up: Response: No adverse reaction; Pain is decreased; RASS: Alert and Calm (0) rr5 05:00 Drug: Dilaudid 1 mg {Note: rass 0.} Route: IVP; Site: right antecubital; rr5 06:00 Follow up: Response: No adverse reaction; Pain is decreased; RASS: Alert and Calm (0) rr5 05:37 Drug: Zofran (Ondansetron) 4 mg Route: IVP; Site: right antecubital; rr5 06:00 Follow up: Response: No adverse reaction; No change in condition; Nausea unchanged; rr5 Vomiting unchanged 06:11 Drug: Phenergan 12.5 mg Route: IVP; Site: right antecubital; rr5 07:05 Follow up: Response: No adverse reaction rr5 Disposition: 02/08/20 06:02 Discharged to Home. Impression: Generalized abdominal pain. - Condition is Stable. - Discharge Instructions: Abdominal Pain, Adult. - Prescriptions for Zofran 4 mg Oral Tablet - take 1 tablet by ORAL route every 12 hours As needed; 20 tablet. Pepcid 20 mg Oral Tablet - take 1 tablet by ORAL route once daily for 10 days; 10 tablet. Fleet Enema - infuse 1 Cartridge by RECTAL route 1-2 times daily for 2 days; 4 Cartridge. Colace 100 mg Oral Tablet - take 1 tablet by ORAL route every 12 hours; 14 tablet. - Medication Reconciliation Form, Thank You Letter, Antibiotic Education, Prescription Opioid Use, Work release form form. - Follow up: Private Physician; When: Tomorrow; Reason: If symptoms return, Continuance of care. Signatures: Dispatcher [employer] EDMS Hollis Scanlon RN RN sg Attema, Lee, FNP-C [employer]-Cla1 Seth Felix MD MD ma2 Jose Eduardo Sandra 2 Elieser Waldrop RN RN rr5 Corrections: (The following items were deleted from the chart) 06:15 06:02 02/08/2020 06:02 Discharged to Home. Impression: Generalized abdominal pain. mw2 Condition is Stable. Forms are Medication Reconciliation Form, Thank You Letter, Antibiotic Education, Prescription Opioid Use. Follow up: Private Physician; When: Tomorrow; Reason: If symptoms return, Continuance of care. ma2 07:17 06:15 02/08/2020 06:02 Discharged to Home. Impression: Generalized abdominal pain. rr5 Condition is Stable. Discharge Instructions: Abdominal Pain, Adult. Prescriptions for Zofran 4 mg Oral Tablet - take 1 tablet by ORAL route every 12 hours As needed; 20 tablet, Pepcid 20 mg Oral Tablet - take 1 tablet by ORAL route once daily for 10 days; 10 tablet. and Forms are Medication Reconciliation Form, Thank You Letter, Antibiotic Education, Prescription Opioid Use. Follow up: Private Physician; When: Tomorrow; Reason: If symptoms return, Continuance of care. mw2
[2020-02-08] MEDS ORDERED: PROMETHAZINE INJ 25 MG/ML AMP ONE (06:20)
[2020-02-08 06:27] VITALS: TEMP 98.3
[2020-02-08 07:59] VITALS: BP 125/62; O2SAT 99
--- NOTE | 2020-02-08 13:44 | RAD REPORT ---
EXAM DESCRIPTION: CT - Abdomen Pelvis W Contrast - 02/08/2020 6:51 am CLINICAL HISTORY: The patient is 44 years old and is Female; RLQ abd pain ;Abd pain TECHNIQUE: Axial computed tomography images of the abdomen and pelvis with intravenous contrast. S agittal and coronal reformatted images were created and reviewed. This CT exam was performed using one or more of the following dose reduction techniques: automated exposure control, adjustment of t he mA and/or kV according to patient size, and/or use of iterative reconstruction technique. COMPARISON: CT abdomen pelvis December 14, 2019. FINDINGS: Lung bases: Unremarkable. No mass. No consolidation. ABDOMEN: Liver: Enlarged fatty liver. Gallbladder and bile ducts: Cholecystectomy without choledocholithiasis. No ductal dilation. Pancreas: No findings to suggest acute pancreatitis. No mass visualized. No ductal dilation. Spleen: Unremarkable. No splenomegaly. Adrenals: Unremarkable. No mass. Kidneys and ureters: Unremarkable. No solid mass. No hydronephrosis. Stomach and bowel: Distal gastric wall thickening. No bowel dilatation or obstruction. No bowel wall thickening. PELVIS: Appendix: The visualized appendix is normal. No pericecal inflammation to suggest acute appendici tis. Bladder: Unremarkable. No mass. Reproductive: Unremarkable as visualized. ABDOMEN and PELVIS: Intraperitoneal space: Unremarkable. No free air. No significant fluid collection. Bones/joints: No acute fracture. No dislocation. Soft tissues: Unremarkable. Vasculature: Unremarkable. No abdominal aortic aneurysm. Lymph nodes: No pathologically enlarged lymph nodes. Tubes, lines and devices: Tubal contraceptive devices noted. No adnexal mass. IMPRESSION: 1. Distal gastric wall thickening. Correlate clinically for gastritis/PUD. 2. Enlarged fatty liver. 3. Cholecystectomy without choledocholithiasis. 4. Tubal contraceptive devices noted. No adnexal mass. 5. Normal appendix. 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 The interpreting radiologist is fully responsible for the content of the report.
== END 2020-02-08 07:17 | disposition home or self-care (01) ==
LOC: ER 03:04
DX: R10.84 Generalized abdominal pain (principal)
CPT/HCPCS: 36415; 74177; 80048; 80076; 81003; 81025; 83690; 85025; 96361; 96374; 96375; 99284; J1170; J2405; J2550; J7030; Q9967